=== PATIENT | female | born 1930 | race Caucasian/White ===

== ENCOUNTER → 2017-05-03 | Outpatient (CLI) | payer MEDICARE ==
--- NOTE | 2017-05-03 13:54 | BD ---
EXAMINATION TYPE: MG DEXA axial skeleton. DATE OF EXAM: 05/03/2017 CLINICAL HISTORY: Height: 62 Weight: 163 FRAX RISK QUESTIONS: Alcohol (3 or more units per day): no Family History (Parent hip fracture): yes, mother & grandmother Glucocorticoids (More than 3mos): no (Ex: prednisone, prednisolone, methylprednisolone, dexamethasone, and hydrocortisone). History of Fracture in Adulthood: no Secondary Osteoporosis: 1. Type 1 Diabetes: no 2. Hyperthyroidism: no 3. Menopause before 45: no 4. Malnutrition: no 5. Chronic liver disease: no Rheumatoid Arthritis: yes Current Tobacco Use: no RISK FACTORS HISTORY OF: Family History of Osteoporosis: yes Active: yes Diet low in dairy products/other sources of calcium: somewhat, but several servings a week Postmenopausal woman: yes Take estrogen and/or progesterone medications: not now How long: hormonal contraceptives for a couple months age 42 Lost more than 2 inches in height since high school: no Frequent falls: no Poor Health: no Hyperparathyroidism: no Adrenal Insufficiency: no MEDICATIONS: Prednisone or other steroids: no Thyroid Medications: no Osteoporosis Medications: patient takes a prescription drug once a month & feels this might possible be an osteoporosis med... but unsure Which medication: unsure How Long: over 2 years Additional Medications: multivitamin , blood pressure meds, cholesterol meds Additional History: right knee replacement EXAM MEASUREMENTS: Bone mineral densitometry was performed using the [employer] System. Bone mineral density as measured about the Lumbar spine is: ----- L1-L4(G/cm2): 1.246 T Score Values are as follows: ----- L2: 0.0 ----- L3: 3.0 ----- L4: 2.0 ----- L1-L4: 1.7 Bone mineral density has: Increased 5.5% since study of: 03/05/2014 Bone mineral density about the R hip (g/cm2): 0.977 Bone mineral density about the L hip (g/cm2): 0.958 T Score values are as follows: -----R Neck: -0.4 -----L Neck: -0.6 -----R Total: -0.1 -----L Total: -0.3 Bone mineral density has: Decreased -0.3% since study of: 03/05/2014 IMPRESSION: Normal (Values between +1 and -1 indicate normal bone mass). Consider repeating this study in 5 year s or sooner if there is some new clinical indication. NOTE: T-SCORE=SD OF THE YOUNG ADULT MEAN.
--- NOTE | 2017-05-07 11:05 | MM ---
Reason for exam: screening (asymptomatic). Last mammogram was performed 1 year and 3 months ago. History: Patient is postmenopausal and history of other cancer. Took estrogen for 2 months beginning at age 42. Physical Findings: A clinical breast exam by your physician is recommended on an annual basis and results should be correlated with mammographic findings. MG 3D Screening Mammo W/Cad Bilateral CC and MLO view(s) were taken. Prior study comparison: February 11, 2016, bilateral MG 3d screening mammo w/cad. March 05, 2014, bilateral MG screening mammo w CAD. The breast tissue is heterogeneously dense. This may lower the sensitivity of mammography. Finding #1: There is a typically benign circumscribed round, oval overall stable masses in comparison to prior exams. Finding #2: There are typically benign calcifications in both breasts. No suspicious abnormality. No significant changes in finding since February 11, 2016 and March 05, 2014. ASSESSMENT: Benign, BI-RAD 2 RECOMMENDATION: Routine screening mammogram of both breasts in 1 year.
== END | disposition home or self-care (01) ==
LOC: RADMAMWWP 08:39
PROVIDERS: ATTEND Internal Medicine Geriatric Medicine
DX: Z12.31 Encounter for screening mammogram for malignant neoplasm of breast (principal); M81.0 Age-related osteoporosis without current pathological fracture
CPT/HCPCS: 77063; 77067; 77080

== ENCOUNTER 2021-10-13 11:47 | Inpatient (IN) | payer MEDICARE ==
[2021-10-13] MEDS ORDERED: ORPHENADRINE 30 MG/ML 2 ML VIAL IM STA (12:15)
[2021-10-13] MEDS ORDERED: KETOROLAC 15 MG/ML 1 ML VIAL IM STA (12:15)
--- NOTE | 2021-10-13 12:16 | ED ---
General Adult HPI - General Chief complaint: Extremity Problem,Nontraumatic Stated complaint: R arm discomfort Time Seen by Provider: 10/13/21 11:55 Source: patient, RN notes reviewed Mode of arrival: ambulatory Limitations: no limitations - History of Present Illness Initial comments: Patient is a pleasant 89-year-old female presenting to the emergency department with right arm discomfort. Onset was around 9:30 or 10 this morning. Patient was already awake. Patient has some discomfort of her right trapezius region with burning type sensation extending down her right arm. Pain increases with movement. No chest pain. No dyspnea. No arm weakness. No history of chronic similar symptoms previous. No injury or trauma. - Related Data Home Medications Medication Instructions Recorded Confirmed ALPRAZolam 0.25 mg PO BID PRN 11/13/14 11/18/14 Ergocalciferol [Vitamin D2 50,000 unit PO DAILY 11/13/14 11/18/14 (DRISDOL)] Simvastatin 40 mg PO DAILY 11/13/14 11/18/14 amLODIPine BESYLATE [Amlodipine 5 mg PO HS 11/13/14 11/18/14 Besylate] Allergies Allergy/AdvReac Type Severity Reaction Status Date / Time omeprazole Allergy Swelling Verified 10/13/21 11:53 Sulfa (Sulfonamide Allergy Unknown Verified 10/13/21 11:53 Antibiotics) Childhood Review of Systems ROS Statement: Those systems with pertinent positive or pertinent negative responses have been documented in the HPI. ROS Other: All systems not noted in ROS Statement are negative. Constitutional: Denies: fever Eyes: Denies: eye pain ENT: Denies: ear pain Respiratory: Denies: cough Cardiovascular: Denies: chest pain Endocrine: Denies: fatigue Gastrointestinal: Denies: abdominal pain Genitourinary: Denies: dysuria Musculoskeletal: Reports: as per HPI Skin: Denies: rash Neurological: Denies: weakness Past Medical History Past Medical History: Cancer, Hyperlipidemia, Hypertension Additional Past Medical History / Comment(s): HX OF SKIN CA, FREQUENT COUGHING History of Any Multi-Drug Resistant Organisms: None Reported Past Surgical History: Joint Replacement, Tubal Ligation Additional Past Surgical History / Comment(s): RIGHT KNEE REPLACEMENT, LAVERNE CATARACTS, SKIN CA REMOVED, Past Anesthesia/Blood Transfusion Reactions: No Reported Reaction Past Psychological History: No Psychological Hx Reported Past Alcohol Use History: Occasional Past Drug Use History: None Reported - Past Family History Mother Family Medical History: Cancer Additional Family Medical History / Comment(s): ESOPHAGEAL General Exam Limitations: no limitations General appearance: alert, in no apparent distress Head exam: Present: normocephalic Eye exam: Present: normal appearance Neck exam: Present: normal inspection Respiratory exam: Present: normal lung sounds bilaterally. Absent: chest wall tenderness Cardiovascular Exam: Present: regular rate, normal rhythm Expanded Peripheral pulses: 2+: Radial (R) GI/Abdominal exam: Present: soft. Absent: tenderness Extremities exam: Present: full ROM (Discomfort with active range of motion. No discomfort with passive range of motion), other (Minimal tenderness right upper arm) Back exam: Present: tenderness (Mild to moderate discomfort right upper trapezius region) Neurological exam: Present: alert, other (Right upper extremity neurovascularly intact.). Absent: motor sensory deficit Psychiatric exam: Present: normal affect, normal mood Skin exam: Present: normal color Course Vital Signs 10/13/21 11:49 Temperature 98.2 F Pulse Rate 86 Respiratory 20 Rate Blood Pressure 159/82 O2 Sat by Pulse 98 Oximetry EKG Findings - EKG Comments: EKG Findings:: Sinus rhythm rate 86. OK 178. QRS 93. QT 365. QTC 409. Normal axis. Normal QRS. Inferior ST depression. Medical Decision Making - Medical Decision Making Patient reevaluated and feeling better with medication. Patient did not present with typical cardiac symptoms however EKG changes and elevated troponin are concerning. Case was discussed with Dr. Keys, heart rate for Dr. Tineo, who will admit. Cardiology will be placed on consult. - Lab Data Result diagrams: 10/13/21 12:50 10/13/21 12:50 Lab Results 10/13/21 10/13/21 10/13/21 Range/Units 12:50 12:50 12:50 WBC 5.4 (3.8-10.6) k/uL RBC 4.32 (3.80-5.40) m/uL Hgb 13.0 (11.4-16.0) gm/dL Hct 40.9 (34.0-46.0) % MCV 94.6 (80.0-100.0) fL MCH 30.1 (25.0-35.0) pg MCHC 31.9 (31.0-37.0) g/dL RDW 14.3 (11.5-15.5) % Plt Count 233 (150-450) k/uL MPV 7.8 Neutrophils % 70 % Lymphocytes % 18 % Monocytes % 7 % Eosinophils % 1 % Basophils % 1 % Neutrophils # 3.8 (1.3-7.7) k/uL Lymphocytes # 1.0 (1.0-4.8) k/uL Monocytes # 0.4 (0-1.0) k/uL Eosinophils # 0.1 (0-0.7) k/uL Basophils # 0.0 (0-0.2) k/uL PT 10.5 (9.0-12.0) sec INR 1.0 (<1.2) APTT 23.9 (22.0-30.0) sec D-Dimer 0.84 H (<0.60) mg/L FEU Sodium 140 (137-145) mmol/L Potassium 3.9 (3.5-5.1) mmol/L Chloride 103 (98-107) mmol/L Carbon Dioxide 22 (22-30) mmol/L Anion Gap 15 mmol/L BUN 21 H (7-17) mg/dL Creatinine 1.30 H (0.52-1.04) mg/dL Est GFR (CKD-EPI)AfAm 43 (>60 ml/min/1.73 sqM) Est GFR (CKD-EPI)NonAf 37 (>60 ml/min/1.73 sqM) Glucose 110 H (74-99) mg/dL Calcium 9.4 (8.4-10.2) mg/dL Magnesium 1.9 (1.6-2.3) mg/dL Total Bilirubin 0.7 (0.2-1.3) mg/dL AST 32 (14-36) U/L ALT 14 (4-34) U/L Alkaline Phosphatase 147 H (38-126) U/L Troponin I (0.000-0.034) ng/mL C-Reactive Protein (<1.0) mg/dL Total Protein 6.8 (6.3-8.2) g/dL Albumin 4.6 (3.5-5.0) g/dL 10/13/21 10/13/21 Range/Units 12:50 13:06 WBC (3.8-10.6) k/uL RBC (3.80-5.40) m/uL Hgb (11.4-16.0) gm/dL Hct (34.0-46.0) % MCV (80.0-100.0) fL MCH (25.0-35.0) pg MCHC (31.0-37.0) g/dL RDW (11.5-15.5) % Plt Count (150-450) k/uL MPV Neutrophils % % Lymphocytes % % Monocytes % % Eosinophils % % Basophils % % Neutrophils # (1.3-7.7) k/uL Lymphocytes # (1.0-4.8) k/uL Monocytes # (0-1.0) k/uL Eosinophils # (0-0.7) k/uL Basophils # (0-0.2) k/uL PT (9.0-12.0) sec INR (<1.2) APTT (22.0-30.0) sec D-Dimer (<0.60) mg/L FEU Sodium (137-145) mmol/L Potassium (3.5-5.1) mmol/L Chloride (98-107) mmol/L Carbon Dioxide (22-30) mmol/L Anion Gap mmol/L BUN (7-17) mg/dL Creatinine (0.52-1.04) mg/dL Est GFR (CKD-EPI)AfAm (>60 ml/min/1.73 sqM) Est GFR (CKD-EPI)NonAf (>60 ml/min/1.73 sqM) Glucose (74-99) mg/dL Calcium (8.4-10.2) mg/dL Magnesium (1.6-2.3) mg/dL Total Bilirubin (0.2-1.3) mg/dL AST (14-36) U/L ALT (4-34) U/L Alkaline Phosphatase (38-126) U/L Troponin I 0.120 H* (0.000-0.034) ng/mL C-Reactive Protein <0.5 (<1.0) mg/dL Total Protein (6.3-8.2) g/dL Albumin (3.5-5.0) g/dL - Radiology Data Radiology results: image reviewed (Chest x-ray shows no acute process. X-ray right shoulder shows no osseous pathology. moderate arthritic changes.) Critical Care Time Critical Care Time: Yes Total Critical Care Time: 31 Disposition Clinical Impression: NSTEMI (non-ST elevated myocardial infarction) Disposition: ADMITTED IP TO THIS HOSP Is patient prescribed a controlled substance at d/c from ED?: No Referrals: Oswald Tineo MD [Primary Care Provider] - 1-2 days Time of Disposition: 13:57
[2021-10-13] MEDS ORDERED: ASPIRIN 81 MG PO STA (12:28)
--- NOTE | 2021-10-13 12:37 | XR ---
EXAMINATION TYPE: XR chest 2V DATE OF EXAM: 10/13/2021 12:28 PM COMPARISON: Chest radiographs from 10/01/2014. TECHNIQUE: XR chest 2V Frontal and lateral views of the chest. CLINICAL INDICATION:Female, 89 years old with history of r shoulder pain; FINDINGS: Lungs/Pleura: There is no evidence of pleural effusion, focal consolidation, or pneumothorax. Pulmonary vascularity: Unremarkable. Heart/mediastinum: Cardiomediastinal silhouette is unremarkable. Atherosclerotic calcifications are seen in the aorta. Musculoskeletal: Multiple level degenerative disc disease changes seen throughout the spine. No acute osseous abnormality. IMPRESSION: No acute cardiopulmonary disease/process.
--- NOTE | 2021-10-13 12:38 | XR ---
EXAMINATION TYPE: XR shoulder complete RT DATE OF EXAM: 10/13/2021 12:28 PM INDICATION: Patient age:Female; 89 years old; Reason for study: r shoulder pain; COMPARISON: Chest radiograph the same date. TECHNIQUE: The right shoulder was examined in AP, internally rotated and scapular Y projections. . FINDINGS: No evidence of acute osseous pathology, joint dislocation, or soft tissue swelling. Moderate degenera tive changes of the AC joint with sclerosis and osteophytosis. Osteoarthritic changes of the right sh oulder with right osteophytosis and joint space narrowing. The remaining portions of the visualized c hest are unremarkable. IMPRESSION: 1. No acute osseous pathology. 2. 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
[2021-10-13 13:15] LABS: Basophils % (A) 1 %; Eosinophils # (A) 0.1 k/uL (0-0.7); Eosinophils % (A) 1 %; HCT 40.9 % (34.0-46.0); Lymphocytes % (A) 18 %; MCH 30.1 pg (25.0-35.0); MCHC 31.9 g/dL (31.0-37.0); MCV 94.6 fL (80.0-100.0); Mean Platelet Volume 7.8; Monocytes # (A) 0.4 k/uL (0-1.0); Monocytes % (A) 7 %; Neutrophils # (A) 3.8 k/uL (1.3-7.7); Neutrophils % (A) 70 %; Platelet Count 233 k/uL (150-450); RBC 4.32 m/uL (3.80-5.40); RDW 14.3 % (11.5-15.5); WBC 5.4 k/uL (3.8-10.6)
[2021-10-13 13:25] LABS: Albumin 4.6 g/dL (3.5-5.0); Calcium 9.4 mg/dL (8.4-10.2); Magnesium 1.9 mg/dL (1.6-2.3); Potassium 3.9 mmol/L (3.5-5.1); Total Bilirubin 0.7 mg/dL (0.2-1.3); Total Protein 6.8 g/dL (6.3-8.2)
[2021-10-13 13:30] LABS: Partial Thromboplastin Time 23.9 sec (22.0-30.0); Prothrombin Time 10.5 sec (9.0-12.0)
[2021-10-13] MEDS ORDERED: HEPARIN SODIUM 1,000 UN/ML (10ML VL) IV ONE (14:06)
[2021-10-13] MEDS ORDERED: NITROGLYCERIN SL TABS 0.4 MG TAB SUBLINGUAL PRN (14:06)
[2021-10-13] MEDS ORDERED: HEPARIN SOD,PORK IN 0.45% NACL 25,000 UNIT in 0.45% NACL 1 250ML.BAG IV SCH (14:15)
--- NOTE | 2021-10-13 14:49 | CT ---
EXAMINATION TYPE: CT angio thor/abd pel aorta DATE OF EXAM: 10/13/2021 COMPARISON: HISTORY: Chest pain radiating into right arm. CT DLP: 1376.5 mGycm. Automated Exposure Control for Dose Reduction was Utilized. CONTRAST: CTA scan of the aorta is performed without and with IV Contrast, patient injected with 80ml mL of Iso natanael 370. Three-D reconstructed images created on an independent workstation and reviewed. FINDINGS: VASCULAR:Noncontrast images show no suspicious hyperdense material to suggest intramural hematoma. Po stcontrast images show satisfactory enhancement of the central pulmonary arteries. Prominent right an d left pulmonary arteries raise concern for underlying pulmonary artery hypertension. Ascending aorta is ectatic measuring up to 3.7 cm in diameter. No linear hypodensity to suggest dissection is seen. Mild peripheral plaque without significant stenosis at origin of the 3 great vessels. Mild to moderat e peripheral plaque in the descending aorta. 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 Correlate for pos sible celiac artery compression syndrome. No significant stenosis in the SMA. Patent bilateral single renal arteries without significant stenosis. More prominent calcified plaque on the right anteriorly is incidentally noted. More moderate calcified plaque of the distal abdominal aorta. Patent TIFFANIE is s een. No significant stenosis in the common or external iliac arteries bilaterally. No significant isak nosis in the femoral artery branches in the bilateral groins. Mild mixed plaque at this level is pres ent. LUNGS: The lungs are grossly clear, there is no concerning parenchymal mass or nodule identified. T here is no pleural effusion or pneumothorax seen. The tracheobronchial tree is patent. MEDIASTINUM: There are no greater than 1 cm hilar or mediastinal lymph nodes. No pericardial effusi on is seen. Cardiomegaly is present. Severe coronary artery calcification is identified greatest in t he proximal LAD. LIVER/GB: Dependent density consistent with small stones and/or gallbladder sludge. No surrounding in flammatory change. PANCREAS: No significant abnormality is seen. SPLEEN: No significant abnormality is seen. ADRENALS: No significant abnormality is seen. KIDNEYS: Innumerable thin-walled cysts throughout the left kidney with less in number but additional prominent thin-walled cysts scattered throughout the right kidney. Marked thin cortex on the left wit h difficulty visualizing the ureter and collecting system appears symmetric cortical medullary uptake is noted. Nonemergent Nuclear functional study follow-up may be beneficial to assess for adequately functioning left kidney. BOWEL: Some diverticula in the sigmoid colon. No acute diverticulitis. No suspicious small or large b owel dilatation. Normal appearing appendix incidentally noted. GENITAL ORGANS: Anteverted small size uterus consistent with postmenopausal age. Occasional scattered tiny pelvic phlebolith. LYMPH NODES: No greater than 1cm abdominal or pelvic lymph nodes are appreciated. OSSEOUS STRUCTURES: Slight grade 1 anterolisthesis L3 on L4 and L4 on L5. [id number] multilevel disc space narrowing with multilevel vacuum disc phenomenon in the lumbar spine. Moderate axial join t space loss in both hips. OTHER: No significant additional abnormality is seen. IMPRESSION: No thoracic or abdominal aortic dissection. Severe coronary artery calcification should b e correlated with additional cardiac risk factors.
--- NOTE | 2021-10-13 18:21 | CA ---
Transthoracic Echo Report Name: Guerda Wills Age: 89 Gender: F : 1930 Exam Date: 10/13/2021 13:28 Exam Location: [facility] Ht (in): 62 Wt (lb): 154 Ordering Physician: Jaquelin Israel Attending/Referring Phys: Export Sales Assistant Eloina Barnes, ZEKE Procedure CPT: Indications: Chest Pain Cardiac Hx: Technical Quality: Fair Contrast 1: Total Dose (mL): Contrast 2: Total Dose (mL): MEASUREMENTS (Male / Female) Normal Values 2D ECHO LV Diastolic Diameter PLAX 4.2 cm 4.2 - 5.9 / 3.9 - 5.3 cm LV Systolic Diameter PLAX 2.7 cm IVS Diastolic Thickness 1.3 cm 0.6 - 1.0 / 0.6 - 0.9 cm LVPW Diastolic Thickness 1.2 cm 0.6 - 1.0 / 0.6 - 0.9 cm LV Relative Wall Thickness 0.6 RV Internal Dim ED PLAX 3.1 cm LA Volume 65.3 cm??? 18 - 58 / 22 - 52 cm??? M-MODE Aortic Root Diameter MM 2.8 cm LA Systolic Diameter MM 3.9 cm LA Ao Ratio MM 1.4 AV Cusp Separation MM 2.0 cm DOPPLER AV Peak Velocity 116.6 cm/s AV Peak Gradient 5.4 mmHg LVOT Peak Velocity 88.3 cm/s LVOT Peak Gradient 3.1 mmHg MV Area PHT 3.9 cm??? Mitral E Point Velocity 82.6 cm/s Mitral A Point Velocity 125.7 cm/s Mitral E to A Ratio 0.7 MV Deceleration Time 192.8 ms MV E' Velocity 4.6 cm/s Mitral E to MV E' Ratio 17.9 TR Peak Velocity 283.0 cm/s TR Peak Gradient 32.0 mmHg Right Ventricular Systolic Press 36.1 mmHg FINDINGS Left Ventricle Mildly increased left ventricular wall thickness. Normal left ventricular systolic function with no obvious regional wall motion abnormalities. Left ventricular ejection fraction is estimated at 55-60 %. Right Ventricle Normal right ventricular size and function. Mild pulmonary hypertension. Right Atrium Normal right atrial size. Left Atrium Moderately increased left atrial volume. Mitral Valve Structurally normal mitral valve. Mild mitral annular calcification. Mild mitral regurgitation. Aortic Valve Aortic valve sclerosis. No aortic stenosis. No aortic regurgitation. Tricuspid Valve Mild tricuspid regurgitation.structurally normal tricuspid valve. Pulmonic Valve Trace pulmonic regurgitation. Pericardium No pericardial effusion. Aorta Normal size aortic root and proximal ascending aorta. CONCLUSIONS 1. Normal left ventricle size and systolic function 2. Mild mitral and tricuspid regurgitation Previewed by: Dr. Jeanne Jones MD (Electronically Signed) Final Date: 13 October 2021 18:20
[2021-10-13] MEDS: ALPRAZolam 0.25 MG TAB PO PRN (19:19)
[2021-10-13] MEDS: amLODIPine 5 MG TAB PO SCH (21:58)
[2021-10-13] MEDS ORDERED: ALBUTEROL NEBULIZED 2.5 MG/3 ML INHALATION PRN (22:36)
[2021-10-13] MEDS ORDERED: ATORVASTATIN 40 MG TAB PO SCH (22:45)
[2021-10-13] MEDS: MONTELUKAST 10 MG TAB PO SCH (23:27)
[2021-10-13] MEDS: PANTOPRAZOLE 40 MG TABLET PO SCH (23:27)
--- NOTE | 2021-10-14 01:59 | HP ---
HISTORY AND PHYSICAL CHIEF COMPLAINT: Chest and shoulder pain. HISTORY OF PRESENT ILLNESS: This 89-year-old woman with a past medical history of multiple medical problems including hypertension, hyperlipidemia, being followed by Dr. Tineo in the outpatient complaining of right shoulder pain as well as trapezius pain and some chest discomfort, history of burning in calf today. The patient came to [facility]. EKG showed diffuse ST-T segment depressions and elevations in some of the leads. The troponin is found to be elevated up to 0.120 and the patient was admitted for further evaluation and rule out possible acute ftl-YT-[id number]-elevation myocardial infarction. There is no history of fever, rigors, or chills at this time. PAST MEDICAL HISTORY: Hypertension, hyperlipidemia. MEDICATIONS: Medications also reviewed. Home medications reviewed include Norvasc 5 mg at bedtime. Rest of the medication and doses are reviewed. ALLERGIES: Include omeprazole, reviewed. FAMILY HISTORY: History of cancer in the family. SOCIAL HISTORY: No history of smoking. Occasional alcohol intake. REVIEW OF SYSTEMS: A 14-point review of systems is negative except as mentioned earlier. PHYSICAL EXAMINATION: VITAL SIGNS: Pulse is 80, blood pressure 159/82, respiration 20. HEENT: Conjunctivae normal. NECK: No JVD. CARDIOVASCULAR: Normal. RESPIRATION: Breath sounds diminished at the bases. No rhonchi. No crackles. ABDOMEN: Soft, nontender. LEGS: No edema. NERVOUS SYSTEMS: No focal deficits. SKIN: No ulcer, rash, bleeding. JOINTS: No active deforming arthropathy. LABS: At this time, CBC within normal limits. Troponin is noted. The rest of the labs noted. ASSESSMENT: 1. Chest pain and shoulder pain, possible acute rma-PN-yztbygg-elevation myocardial infarction. 2. ST-T changes in the EKG. 3. Troponin 0.120. 4. Possible chronic kidney disease. 5. Hypertension. 6. Hyperlipidemia. RECOMMENDATIONS AND DISCUSSION: This is an 89-year-old woman, who presented with multiple complex medical issues. At this time, I recommend to continue protocol. Antiplatelet agents. Cardiology consultation. Otherwise, resume the home medications. Prognosis guarded. Further recommendations to follow. We will also check COVID-19. See orders for further details. MMODL / IJN: [id number] / MTDD
[2021-10-14] MEDS: ALPRAZolam 0.25 MG TAB PO PRN (06:09)
[2021-10-14 06:30] LABS: Mean Platelet Volume 7.8; Platelet Count 205 k/uL (150-450)
[2021-10-14] MEDS ORDERED: HEPARIN SODIUM,PORCINE 10,000 UNIT in SODIUM CHLORIDE 0.9% 1,000 ML IRRIGATION PRN (07:00)
[2021-10-14] MEDS ORDERED: HEPARIN SODIUM,PORCINE 2,500 UNIT in SODIUM CHLORIDE 0.9% 250 ML IRRIGATION PRN (07:00)
[2021-10-14] MEDS ORDERED: SODIUM CHLORIDE 0.9% 1,000 ML IV STA (08:07)
[2021-10-14] MEDS ORDERED: ATORVASTATIN 80 MG TAB PO STA (08:20)
[2021-10-14] MEDS ORDERED: ALPRAZolam 0.5 MG TAB PO PRN (08:20)
[2021-10-14] MEDS ORDERED: ALPRAZolam 0.25 MG TAB PO PRN (08:20)
[2021-10-14 08:38] LABS: HCT 38.6 % (34.0-46.0); HGB 12.3 gm/dL (11.4-16.0); MCH 30.3 pg (25.0-35.0); MCHC 31.8 g/dL (31.0-37.0); MCV 95.2 fL (80.0-100.0); Mean Platelet Volume 7.6; Platelet Count 212 k/uL (150-450); RBC 4.05 m/uL (3.80-5.40); RDW 14.2 % (11.5-15.5); WBC 6.1 k/uL (3.8-10.6)
[2021-10-14 08:47] LABS: Calcium 8.7 mg/dL (8.4-10.2); Potassium 3.6 mmol/L (3.5-5.1)
[2021-10-14] MEDS ORDERED: ATORVASTATIN 20 MG TAB PO SCH (09:00)
[2021-10-14] MEDS ORDERED: ASPIRIN 325 MG TAB PO SCH (09:00)
[2021-10-14 09:44] LABS: Chol/HDL Ratio 2.12 Ratio; VLDL Calculation 18.12 mg/dL (5.00-40.00)
--- NOTE | 2021-10-14 10:04 | P.CRDCN ---
"History of Present Illness History of present illness: HISTORY OF PRESENTING ILLNESS This is a pleasant 89-year-old female past medical history significant for hypertension, dyslipidemia, ureteral stent 20+ years ago, chronic kidney disease in the past, gout. 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 We have been asked to see in consultation for NSTEMI. Patient presents emergency department with complaints of right arm, right shoulder heaviness and numbness. She states that her symptoms began yesterday. 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 She noticed discomfort in her right arm, it felt heavy. She states it would not resolve. She went to go take a shower and began to not feel well. She states she felt as if something was wrong. She also began to have some right-sided chest discomfort on arrival. She denies any lightheadedness, dizziness, palpitations, shortness of breath, nausea, vomiting, diaphoresis, syncope or near syncope. She denies any history of CAD, MA, stroke, diabetes. She is a non-/never smoker. Denies any alcohol/illicit drug use. She is relatively active at home, she takes care of her . Initial EKG revealed ST depression in inferior leads. Troponins were elevated 0.12-->3.8-->18.4 DIAGNOSTICS * Initial EKG revealed sinus rhythm, heart rate 86, significant for ST depression in inferior leads, some ST depression in leads V4-V6. Repeat EKG with improvement in ST depression. No prior EKG to compare * Telemetry tracings indicate sinus mechanism * Thoracic aorta CT with contrast revealed no thoracic or abdominal aortic dissection, severe coronary artery calcifications reported. * Echocardiogram revealed EF 5560 percent, mild mitral regurgitation, mild tricuspid regurgitation * Chest xray no acute cardiopulmonary process * Laboratory reviewed, sodium 140, potassium 2.6, BUN 23, serum creatinine 1.39, triglycerides 90, cholesterol 148, LDL 60, troponin 18.4, d-dimer 0.84 * Current home cardiac medications include amlodipine 5 mg daily, simvastatin 40 mg nightly REVIEW OF SYSTEMS At the time of my exam: CONSTITUTIONAL: Denies fever or chills. CARDIOVASCULAR: + chest pain,+|right arm pain and heaviness. Denies shortness of breath, orthopnea, PND or palpitations. RESPIRATORY: Denies cough. GASTROINTESTINAL: Denies abdominal pain, diarrhea, constipation, nausea or vomiting. MUSCULOSKELETAL: Denies myalgias. NEUROLOGIC: Denies numbness, tingling, headacbe or weakness. ENDOCRINE: Denies fatigue, weight change, polydipsia or polyurina. GENITOURINARY: Denies burning, hematuria or urgency with micturation. HEMATOLOGIC: Denies history of anemia or bleeding. PHYSICAL EXAMINATION Blood pressure 130/70, heart rate 86, afebrile, saturations 95% room air CONSTITUTIONAL: No apparent distress. HEENT: Head is normocephalic. Pupils are equal, round. Sclerae anicteric. Mucous membranes of the mouth are moist. No JVD. No carotid bruit. CHEST EXAMINATION: Lungs are clear to auscultation. No chest wall tenderness is noted on palpation or with deep breathing. HEART EXAMINATION: Regular rate and rhythm. S1, S2 heard. No murmurs, gallops or rub. ABDOMEN: Soft, nontender. Positive bowel sounds. EXTREMITIES: 2+ peripheral pulses, no lower extremity edema and no calf tenderness. NEUROLOGIC EXAMINATION: Patient is awake, alert and oriented x3. ASSESSMENT NSTEMI History of hypertension Dyslipidemia Acute on chronic kidney disease unknown baseline History of chronic kidney disease History of ureteral stent 20+ years ago History of gout PLAN Plan for cardiac catheterization, patient is agreeable. Patient's son updated at bedside IV fluids Monitor renal function IV heparin, aspirin, statin I have discussed the risks, benefits and alternative therapies for the above- mentioned procedure and for both sedation/analgesia as well as necessary blood product administration, if indicated, as they pertain to this patient. The patient has indicated understanding and acceptance of the risks and procedures discussed. Questions have been answered appropriately and she is agreeable to move forward with the above-stated procedure. Further recommendations based on clinical course Nurse practitioner note has been reviewed by physician. Signing provider agrees with the documented findings, assessment, and plan of care. Past Medical History Past Medical History: Cancer, Hyperlipidemia, Hypertension Additional Past Medical History / Comment(s): HX OF SKIN CA, FREQUENT COUGHING History of Any Multi-Drug Resistant Organisms: None Reported Past Surgical History: Joint Replacement, Tubal Ligation Additional Past Surgical History / Comment(s): RIGHT KNEE REPLACEMENT, LAVERNE CATARACTS, SKIN CA REMOVED, Past Anesthesia/Blood Transfusion Reactions: No Reported Reaction Past Psychological History: No Psychological Hx Reported Smoking Status: Never smoker Past Alcohol Use History: Occasional Past Drug Use History: None Reported - Past Family History Mother Family Medical History: Cancer Additional Family Medical History / Comment(s): ESOPHAGEAL Medications and Allergies Home Medications Medication Instructions Recorded Confirmed Type Simvastatin 40 mg PO HS 11/13/14 10/13/21 History amLODIPine BESYLATE [Amlodipine 5 mg PO DAILY 11/13/14 10/13/21 History Besylate] Albuterol Sulfate [Albuterol 2 puff INHALATION RT-QID PRN 10/13/21 10/13/21 History Sulfate Hfa] Ergocalciferol [Vitamin D2 (1250 1,250 mcg PO Q14D 10/13/21 10/13/21 History Mcg = 41780 Iu)] Escitalopram [Lexapro] 5 mg PO DAILY 10/13/21 10/13/21 History Montelukast Sodium [Singulair] 10 mg PO HS 10/13/21 10/13/21 History Pantoprazole [Protonix] 40 mg PO HS 10/13/21 10/13/21 History Triamterene-Hctz 37.5-25Mg 1 cap PO DAILY 10/13/21 10/13/21 History [Dyazide 37.5-25 Capsule] Vit C/E/Zn/Coppr/Lutein/Zeaxan 1 cap PO DAILY 10/13/21 10/13/21 History [Preservision Areds 2 Softgel] allopurinoL [Zyloprim] 100 mg PO HS 10/13/21 10/13/21 History Allergies Allergy/AdvReac Type Severity Reaction Status Date / Time omeprazole Allergy Swelling Verified 10/13/21 14:04 Sulfa (Sulfonamide AdvReac Nausea & Verified 10/13/21 14:04 Antibiotics) Vomiting Physical Exam Vitals: Vital Signs Temp Pulse Pulse Resp BP BP Pulse Ox 10/14/21 07:26 78 95 10/14/21 06:26 86 138/70 10/14/21 06:11 98.2 F 85 14 152/75 95 10/14/21 04:00 98.0 F 63 15 134/68 95 10/14/21 00:00 98.0 F 90 12 124/73 95 10/13/21 20:00 98.1 F 87 14 136/81 97 10/13/21 19:00 80 18 144/72 10/13/21 15:22 81 20 144/72 96 10/13/21 11:49 98.2 F 86 20 159/82 98 Intake and Output 10/13/21 10/14/21 10/14/21 22:59 06:59 14:59 Intake Total 595.403 84.658 Balance 595.403 84.658 Intake: Intake, IV Titration 45.403 84.658 Amount Heparin Sod,Pork in 0.45% 45.403 84.658 NaCl 25,000 unit In 0.45 % NaCl 1 250ml.bag @ 12 UNITS/KG/HR 8.382 mls/hr IV .Q24H KURT Rx#: [id number] Oral 550 Other: # Voids 3 Weight 69.853 kg Results 10/14/21 08:01 10/14/21 08:01 Cardiac Enzymes 10/13/21 10/13/21 10/13/21 Range/Units 12:50 12:50 16:08 AST 32 (14-36) U/L Troponin I 0.120 H* 3.830 H* (0.000-0.034) ng/mL 10/14/21 Range/Units 05:46 AST (14-36) U/L Troponin I 18.400 H* (0.000-0.034) ng/mL Coagulation 10/13/21 10/13/21 10/14/21 Range/Units 12:50 20:02 05:46 PT 10.5 (9.0-12.0) sec APTT 23.9 52.1 H 50.8 H (22.0-30.0) sec CBC 10/13/21 10/14/21 Range/Units 12:50 05:46 WBC 5.4 (3.8-10.6) k/uL RBC 4.32 (3.80-5.40) m/uL Hgb 13.0 (11.4-16.0) gm/dL Hct 40.9 (34.0-46.0) % Plt Count 233 205 (150-450) k/uL Comprehensive Metabolic Panel 10/13/21 Range/Units 12:50 Sodium 140 (137-145) mmol/L Potassium 3.9 (3.5-5.1) mmol/L Chloride 103 (98-107) mmol/L Carbon Dioxide 22 (22-30) mmol/L BUN 21 H (7-17) mg/dL Creatinine 1.30 H (0.52-1.04) mg/dL Glucose 110 H (74-99) mg/dL Calcium 9.4 (8.4-10.2) mg/dL AST 32 (14-36) U/L ALT 14 (4-34) U/L Alkaline Phosphatase 147 H (38-126) U/L Total Protein 6.8 (6.3-8.2) g/dL Albumin 4.6 (3.5-5.0) g/dL Current Medications Generic Name Dose Route Start Last Admin Trade Name Freq PRN Reason Stop Dose Admin Albuterol Sulfate 2.5 mg 10/13/21 22:36 10/14/21 07:24 Albuterol Nebulized 2.5 Mg/3 Ml INHALATION 2.5 mg RT-QID PRN Administration Shortness Of Breath Alprazolam 0.25 mg 10/13/21 13:09 10/14/21 06:09 Alprazolam 0.25 Mg Tab PO 0.25 mg BID PRN Administration Anxiety Amlodipine Besylate 5 mg 10/13/21 21:00 10/13/21 21:58 Amlodipine 5 Mg Tab PO 5 mg HS KURT Administration Aspirin 325 mg 10/14/21 09:00 Aspirin 325 Mg Tab PO DAILY KURT Atorvastatin Calcium 40 mg 10/13/21 22:45 10/13/21 23:28 Atorvastatin 40 Mg Tab PO 40 mg HS KURT Administration Ergocalciferol 1,250 mcg 10/16/21 09:00 Ergocalciferol 1,250 Mcg (50,000 Iu) Capsule PO Q14D KURT Heparin Sodium/Sodium Chloride 250 mls @ 8.382 mls/hr 10/13/21 14:15 10/14/21 06:49 25,000 unit/ Sodium Chloride IV 12 units/kg/hr .Q24H KURT 8.382 mls/hr Titration Protocol 12 UNITS/KG/HR Montelukast Sodium 10 mg 10/13/21 22:45 10/13/21 23:27 Montelukast 10 Mg Tab PO 10 mg HS KURT Administration Nitroglycerin 0.4 mg 10/13/21 14:06 10/14/21 06:10 Nitroglycerin Sl Tabs 0.4 Mg Tab SUBLINGUAL 0.4 mg Q5M PRN Administration Chest Pain Pantoprazole Sodium 40 mg 10/13/21 22:45 10/13/21 23:27 Pantoprazole 40 Mg Tablet PO 40 mg HS KURT Administration Sodium Chloride 10 ml 10/13/21 21:00 10/13/21 21:58 Sodium Chloride 0.9% Flush 10 Ml Syringe IV Not Given BID KURT Intake and Output 10/13/21 10/14/21 10/14/21 22:59 06:59 14:59 Intake Total 595.403 84.658 Balance 595.403 84.658 Intake: Intake, IV Titration 45.403 84.658 Amount Heparin Sod,Pork in 0.45% 45.403 84.658 NaCl 25,000 unit In 0.45 % NaCl 1 250ml.bag @ 12 UNITS/KG/HR 8.382 mls/hr IV .Q24H KURT Rx#: [id number] Oral 550 Other: # Voids 3 Weight 69.853 kg 10/14/21 05:46 10/13/21 12:50"
[2021-10-14 10:10] LABS: Glucose,Whole Blood 99 mg/dL (70-110)
[2021-10-14] MEDS ORDERED: VERAPAMIL 2.5 MG/ML 2 ML AMP ONE ×2 (12:10→12:53)
[2021-10-14] MEDS ORDERED: HEPARIN SODIUM 1,000 UN/ML (10ML VL) ONE (12:29)
[2021-10-14] MEDS ORDERED: fentaNYL (PF) 50 MCG/ML 2 ML AMP ONE (12:30)
[2021-10-14] MEDS ORDERED: IV FLUID CONTINUATION 1,000 ML IV ONE (12:35)
[2021-10-14] MEDS ORDERED: fentaNYL (PF) 50 MCG/ML 2 ML AMP IV ONE (12:42)
[2021-10-14] MEDS ORDERED: LIDOCAINE 1% INJ 10MG/ML (30 ML VIAL-PF) SQ ONE ×2 (12:42→12:43)
[2021-10-14] MEDS ORDERED: VERAPAMIL SYRINGE (5 MG/10 ML) INTRAARTER ONE (12:44)
[2021-10-14] MEDS ORDERED: MIDAZOLAM 2 MG/2 ML VIAL IV ONE (12:45)
[2021-10-14] MEDS: HEPARIN SODIUM 1,000 UN/ML (10ML VL) IV ONE ×4 (12:56→13:29)
[2021-10-14] MEDS ORDERED: CLOPIDOGREL 75 MG TAB PO ONE (13:10)
[2021-10-14] MEDS ORDERED: CLOPIDOGREL 75 MG TAB ONE (13:10)
[2021-10-14] MEDS ORDERED: IOPAMIDOL-370 125ML BTL INJ ONE (13:25)
[2021-10-14] MEDS ORDERED: ZOLPIDEM 5 MG TAB PO PRN (13:32)
[2021-10-14] MEDS ORDERED: RX INFO: IV CONTRAST WAS GIVEN 1 EACH MISC MISCELLANE PRN (13:32)
[2021-10-14] MEDS ORDERED: MAG HYDROX/AL HYDROX/SIMETH 30 ML CUP PO PRN (13:32)
[2021-10-14] MEDS ORDERED: ATROPINE SULFATE 0.1 MG/ML 10ML SYRINGE IV PRN (13:32)
[2021-10-14] MEDS ORDERED: NITROGLYCERIN SL TABS 0.4 MG TAB SUBLINGUAL PRN (13:32)
--- NOTE | 2021-10-14 13:40 | P.CARDCATH ---
Date of Procedure: 10/14/21 Description of Procedure: Cardiac Catheterization: The patient is an 89-year-old female with a known history of hypertension and hyperlipidemia who presented with evidence of non-STEMI, she was evaluated by Dr. Wilcox. Recommendations were made regarding cardiac catheterization, the risks and the complications were discussed with the patient who is in full understanding and agreement. Procedure Description: Patient was brought to aquatic laborer in fasting semi-sedated state after receiving Fentanyl and Benadryl achieiving moderate conscious sedated state. Using Xylocaine Anesthesia and Seldinger technique, a 6-German sheath was introduced in the right radial artery . Subsequently, selective coronary angiography was performed using a 3.5-German 5 bend right Derrick catheter and 5-German Abran catheter. Multiple views of the coronary artery including hemiaxial views were obtained. Following that a 6- German CLS 3.5 guiding catheter was introduced and the system, after cannulating the left main a 0.014 BMW J-wire was introduced in the first OM, positioned distally. Then a 2.5 x 12 mm Treck balloon was advanced and 2 inflations at 8 edi were done. After removing the balloon 2.5 x 15 mm Xience winifred point stent was advanced and deployed at 16 edi. After removing the balloon images were obtained and revealed successful stenting. Following that, catheter and sheath were removed. Hemostasis was obtained with deployment of TR band . There was no immediate complication. Patient was returned to room in stable condition. Of note, the patient received a total of 5000 units of intravenous heparin as well as intra-arterial verapamil. She received a loading dose of clopidogrel, her ACT was monitored. She had no chest discomfort or EKG changes. Findings: Fluoroscopy there is significant calcifications involving the LAD Left main: This is a large size vessel, bifurcating into LAD and left circumflex, left main has no high-grade stenosis LAD: This is a large size vessel, giving rise to 3 diagonal branch, the LAD is calcified and has intimal disease of 20-30% in the midsegment. The second diagonal branch has a 50-60% plaque proximally. The rest of the vessel has no high-grade stenosis. Left circumflex: This is a nondominant vessel giving rise to a large first obtuse marginal branch that has a 99% stenosis proximally RCA: This is a large dominant vessel, bifurcating into PDA and PLV the right coronary artery has no evidence of high-grade stenosis Left Ventriculogram: Not performed Conclusion: 1. Calcified coronary arteries 2. 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 Mild disease in the mid LAD 4. Successful stenting of the first obtuse marginal branch with reduction of the stenosis from 99% to 0% Recommendations: The patient will continue on aspirin and clopidogrel for 1 year without any interruption in addition to aggressive coronary risks modifications. The findings and the recommendations were discussed with the patient and the family and they were in full understanding and agreement. Duration of sedation is 46 minutes.
[2021-10-14] MEDS ORDERED: SODIUM CHLORIDE 0.9% 1,000 ML in EMPTY BAG 1 BAG IV SCH (13:45)
[2021-10-14 14:10] VITALS: BMI 28.1
[2021-10-14] MEDS ORDERED: ALBUTEROL HFA INHALER INHALATION PRN (16:11)
[2021-10-14] MEDS: MONTELUKAST 10 MG TAB PO SCH (20:29)
[2021-10-14] MEDS: amLODIPine 5 MG TAB PO SCH (20:30)
[2021-10-14] MEDS: PANTOPRAZOLE 40 MG TABLET PO SCH (20:30)
[2021-10-14] MEDS: METOPROLOL TARTRATE 25 MG TAB PO SCH (20:30)
[2021-10-14] MEDS ORDERED: allopurinoL 100 MG TAB PO SCH (21:00)
--- NOTE | 2021-10-15 05:28 | PN ---
PROGRESS NOTE SUBJECTIVE: This 89-year-old woman was admitted with chest pain and shoulder pain, had troponin elevated up to 18. 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 No chest pain, no palpitations, no fever. OBJECTIVE: VITAL SIGNS: Pulse is 82, blood pressure 110/72, and respirations 18. HEENT: Conjunctivae normal. NECK: No JVD. CARDIOVASCULAR: S1, S2 . RESPIRATION: Breath sounds diminished at the bases. ABDOMEN: Soft, nontender. NERVOUS SYSTEMS: No focal deficits. LABS: Creatinine 1.39. Other labs are noted. ASSESSMENT: 1. Acute lem-EQ-kxqpptm-elevation myocardial infarction, status post cardiac catheterization and stenting of the 1st OM branch. 2. Chronic kidney disease. 3. ST-T changes in the EKG. 4. Hypertension. 5. Hyperlipidemia. RECOMMENDATIONS AND DISCUSSION: Recommend to continue current medications, symptomatic treatment. Otherwise at this time I recommend repeat labs, hydration, antiplatelet agents. Closely follow with Cardiology. Prognosis guarded. Further recommendations to follow. Discussed with family. MMODL / IJN: [id number] /
[2021-10-15] MEDS ORDERED: CLOPIDOGREL 75 MG TAB PO SCH (09:00)
[2021-10-15] MEDS ORDERED: ASPIRIN 81 MG PO SCH (09:00)
[2021-10-15] MEDS ORDERED: ESCITALOPRAM 5 MG TAB PO SCH (09:00)
--- NOTE | 2021-10-15 10:06 | P.PN ---
Subjective Progress Note Date: 10/15/21 PROGRESS NOTE The patient is an 89-year-old female who presented with evidence of non-STEMI, underwent cardiac catheterization and was found to have severe obstructive disease involving the OM1 and underwent stenting of that vessel. She's feeling well this morning, continues to be in sinus mechanism, denies any chest discomfort, dizziness or palpitations. She had renal insufficiency prior to the intervention. Medications: Aspirin once a day, amlodipine 5 mg daily, Lipitor 40 mg daily, Plavix 75 mg daily, metoprolol 25 mg twice a day, Singulair PHYSICAL EXAMINATION: Blood pressure 128/70 heart rate 80 LUNGS: Clear to auscultation HEART: Regular rate and rhythm, S1, S2. No S3. systolic ejection murmur ABDOMEN: Soft, nontender, no organomegaly EXTREMETIES: No edema, right radial pulse intact LAB: Renal function pending, EKG shows no acute changes IMPRESSION: 1. Status post non-STEMI with stenting of the left circumflex 2. History of hypertension 3. Chronic kidney disease PLAN: 1. Check renal functions 2. If renal function is stable probable discharge home today and follow-up with Dr. Wilcox as outpatient Objective - Vital Signs Vital signs: Vital Signs Temp 98.5 F 10/15/21 03:25 Pulse 77 10/15/21 09:08 Resp 16 10/15/21 03:25 BP 128/71 10/15/21 03:25 Pulse Ox 95 10/15/21 09:08 FiO2 Intake & Output 10/14/21 10/15/21 10/15/21 18:59 06:59 18:59 Intake Total 390 850 118 Balance 390 850 118 Weight 69.853 kg Intake: IV 150 Intake, IV Titration 600 Amount Sodium Chloride 0.9% 1, 600 000 ml @ 75 mls/hr IV . [id number] STA Rx#:[id number] Oral 240 250 118 Other: # Voids 0 1 # Bowel Movements 1 - Labs CBC & Chem 7: 10/14/21 08:01 10/14/21 08:01
[2021-10-15 10:36] LABS: Calcium 8.6 mg/dL (8.4-10.2); Potassium 3.7 mmol/L (3.5-5.1)
[2021-10-15 10:51] LABS: Basophils # (A) 0.1 k/uL (0-0.2); Basophils % (A) 1 %; Eosinophils # (A) 0.1 k/uL (0-0.7); Eosinophils % (A) 2 %; HCT 37.8 % (34.0-46.0); Lymphocytes # (A) 0.9 k/uL (1.0-4.8); Lymphocytes % (A) 18 %; MCHC 31.6 g/dL (31.0-37.0); Mean Platelet Volume 8.1; Monocytes # (A) 0.7 k/uL (0-1.0); Monocytes % (A) 13 %; Neutrophils # (A) 3.4 k/uL (1.3-7.7); Neutrophils % (A) 64 %; Platelet Count 209 k/uL (150-450); RBC 3.99 m/uL (3.80-5.40); RDW 14.2 % (11.5-15.5); WBC 5.3 k/uL (3.8-10.6)
[2021-10-15 11:03] VITALS: BP 118/70; PULSE 85; RESP 20; TEMP 97.8
[2021-10-15] MEDS: METOPROLOL TARTRATE 25 MG TAB PO SCH (11:38)
[2021-10-15] MEDS ORDERED: ATORVASTATIN 40 MG TAB PO SCH (21:00)
[2021-10-16] MEDS ORDERED: ERGOCALCIFEROL 1,250 MCG (50,000 IU) CAPSULE PO SCH (09:00)
--- NOTE | 2021-10-17 10:33 | DS ---
DISCHARGE SUMMARY FINAL DIAGNOSES: 1. Acute crt-VB-gwhqjsd-elevation myocardial infarction, status post cardiac resuscitation, obtuse marginal stenting. 2. Chronic kidney disease. 3. ST-T changes in the EKG. 4. Hypertension. 5. Hyperlipidemia. DISCHARGE DISPOSITION: The patient will be discharged in stable condition. Guarded prognosis. HISTORY OF PRESENT ILLNESS: This is an 89-year-old woman with past history of multiple medical problems, being followed by Dr. Tineo and the patient admitted with chest pain and shoulder pain. The patient was found to have acute lua-OX-oiuxeta-elevation myocardial infarction with troponin around 18. The patient underwent cardiac catheterization and stenting of the obtuse marginal 1st branch. The patient improved significantly. Creatinine is stable at 1.34. Cardiology cleared the patient for discharge. PHYSICAL EXAMINATION: VITAL SIGNS: On exam vitals stable. CARDIOVASCULAR: ABDOMEN: Soft. NERVOUS SYSTEM: No focal deficits. DISCHARGE MEDICATIONS/MEDICATIONS: 1. Lopressor 25 mg p.o. b.i.d. 2. Nitro p.r.n. 3. Plavix 70 mg p.o. daily. 4. Aspirin 81 mg p.o. daily. Continue rest of medications including, 1. Norvasc. 2. Simvastatin. 3. Protonix. 4. Lexapro. 5. Albuterol. 6. Vitamin D2. 7. Singulair. 8. Allopurinol. 9. Dyazide, to be discontinued per Cardiology. Discharged in stable condition, guarded prognosis. MMODL / IJN: [id number] / MTDD
== END 2021-10-15 18:36 | disposition home or self-care (01) | DRG 247 ==
LOC: EC 11:47 → 3SCARD 14:06
PROVIDERS: ADMIT Hospitalist; ATTEND Hospitalist
PROC: 027034Z Dilation of Coronary Artery, One Artery with Drug-eluting Intraluminal Device, Percutaneous Approach (ICD-10-PCS; principal; 2021-10-14 10:45)
PROC: 4A023N7 Measurement of Cardiac Sampling and Pressure, Left Heart, Percutaneous Approach (ICD-10-PCS; principal; 2021-10-14 10:45)
PROC: B2111ZZ Fluoroscopy of Multiple Coronary Arteries using Low Osmolar Contrast (ICD-10-PCS; principal; 2021-10-14 10:45)
DX: I21.4 Non-ST elevation (NSTEMI) myocardial infarction (principal); N17.9 Acute kidney failure, unspecified; R20.2 Paresthesia of skin; N18.9 Chronic kidney disease, unspecified; E78.5 Hyperlipidemia, unspecified; I12.9 Hypertensive chronic kidney disease with stage 1 through stage 4 chronic kidney disease, or unspecified chronic kidney disease; Z79.899 Other long term (current) drug therapy; Z80.9 Family history of malignant neoplasm, unspecified; Z71.3 Dietary counseling and surveillance; Z88.2 Allergy status to sulfonamides; R20.0 Anesthesia of skin; M10.9 Gout, unspecified; I25.10 Atherosclerotic heart disease of native coronary artery without angina pectoris
CPT/HCPCS: 36415; 71046; 71275; 74174; 80048; 80053; 80061; 83735; 84484; 85025; 85027; 85049; 85379; 85610; 85652; 85730; 86140; 87635; 93005; 93306; 93454; 94640; 94760; 96365; 96366; 96372; 96375; 99285

== ENCOUNTER → 2022-03-17 | Outpatient (CLI) | payer MEDICARE ==
--- NOTE | 2022-03-17 15:48 | BD ---
EXAMINATION TYPE: Axial Bone Density DATE OF EXAM: 03/17/2022 COMPARISON: 05/03/2017 CLINICAL HISTORY: 89 years year old Female. 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 History of Fracture in Adulthood: NO Secondary Osteoporosis: 1. Type 1 Diabetes: NO 2. Hyperthyroidism: NO 3. Menopause before 45: NO 4. Malnutrition: NO 5. Chronic liver disease: NO Rheumatoid Arthritis: YES Current Tobacco Use: NO RISK FACTORS HISTORY OF: Hip Fracture (Right/Left): NO Spine Fracture: NO History of Wrist Fracture: NO Surgery to Spine/Hip(right/left)/Wrist (right/left): NO Family History of Osteoporosis: YES, MOTHER Active: YES Diet low in dairy products/other sources of calcium: NO Postmenopausal woman: YES Lost more than 2 inches in height since high school: YES Frequent falls: NO Poor Health: NO Hyperparathyroidism: NO Adrenal Insufficiency: NO MEDICATIONS: Prednisone or other steroids: NO Thyroid Medications: NO Osteoporosis Medications: NO Additional Medications: BLOOD THINNER, HEART MEDICATIONS, CHOLESTEROL MEDS, PRESAVISION Additional History: HX HEART ATTACK 09/2021 EXAM MEASUREMENTS: Bone mineral densitometry was performed using the [employer] System. Bone mineral density as measured about the Lumbar spine is: ----- L1-L4(G/cm2): 1.420 T Score Values are as follows: ----- L1: 2.1 ----- L2: 0.9 ----- L3: 2.4 ----- L4: 2.3 ----- L1-L4: 2.0 Bone mineral density has: INCREASED 0.8% since study of: 05/03/2017 Bone mineral density about the R hip (g/cm2): 0.960 Bone mineral density about the L hip (g/cm2): 0.963 T Score values are as follows: -----R Neck: -0.6 -----L Neck: -0.5 -----R Total: -0.6 -----L Total: -1.0 Bone mineral density has: DECREASED -7.6% since study of: 05/03/2017 FRAX%s: The graph provided illustrates a 10.8% chance for a major osteoporotic fx and a 2.8% chance f or the hips probability for fx in 10 years time. IMPRESSION: Normal (Values between +1 and -1 indicate normal bone mass). Consider repeating this study in 5 year s or sooner if there is some new clinical indication. NOTE: T-SCORE=SD OF THE YOUNG ADULT MEAN.
--- NOTE | 2022-03-20 08:35 | MM ---
Reason for Exam: Screening (asymptomatic). Last mammogram was performed 4 year(s) and 10 month(s) ago. Patient History: Menarche at age 16. First Full-Term at age 20. Postmenopausal. Other cancer. Estrogen for 2 months starting at age 42. Prior Study Comparison: 03/05/2014 Bilateral Screening Mammogram, [facility]. 02/11/2016 Bilateral Screening Mammogram, [facility]. 05/03/2017 Bilateral Screening Mammogram, [facility]. Tissue Density: There are scattered fibroglandular densities. Findings: Analyzed By CAD. There are benign-appearing vascular calcifications that are redemonstrated bilaterally. There are scattered benign-appearing round and dystrophic calcifications bilaterally. There is no suspicious new group of microcalcifications or new suspicious mass in either breast. Overall Assessment: Benign, BI-RAD 2 Management: Screening Mammogram of both breasts in 1 year. A clinical breast exam by your physician is recommended on an annual basis and results should be correlated with mammographic findings. Electronically signed and approved by: Cheko Guerrero M.D.
== END | disposition home or self-care (01) ==
LOC: RADMAMWWP 14:46
PROVIDERS: ATTEND Internal Medicine Geriatric Medicine
DX: Z12.31 Encounter for screening mammogram for malignant neoplasm of breast (principal); M81.0 Age-related osteoporosis without current pathological fracture
CPT/HCPCS: 77063; 77067; 77080